=== PATIENT | male | born 1975 | race Asian ===

== ENCOUNTER 2017-03-10 17:08 | Emergency (ER) | payer OTHER ==
[~2017-03-10] VITALS: Ht 165.1 cm; Wt 60.8 kg
[~2017-03-10 17:08] MED LIST: NKDA
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
[2017-03-10 18:39] VITALS: BP 118/75
== END 2017-03-10 18:40 | disposition home or self-care (01) ==
LOC: ER 17:10
DX: S06.0X9A Concussion with loss of consciousness of unspecified duration, initial encounter (principal); S16.1XXA Strain of muscle, fascia and tendon at neck level, initial encounter; V43.52XA Car driver injured in collision with other type car in traffic accident, initial encounter; Y93.89 Activity, other specified; Y92.89 Other specified places as the place of occurrence of the external cause; Y99.9 Unspecified external cause status
CPT/HCPCS: 70450-TC; 71010-TC; 72125-TC; A4606; L0172; Z7610